=== PATIENT | female | born 1995 | race African-American/Black ===

== ENCOUNTER 2024-02-16 00:23 | Emergency (ER) | payer SELFPAY ==
[~2024-02-16] VITALS: Ht 157.5 cm; Wt 85.3 kg
[2024-02-16 00:38] VITALS: TEMP 98.6; O2SAT 100
[2024-02-16] MEDS ORDERED: KETOROLAC 15MG/ML VIAL IM ONE (00:45)
[2024-02-16] MEDS ORDERED: NAPR-1176 MT (02:08)
[2024-02-16] MEDS ORDERED: LIDO700A15 TP (02:08)
[2024-02-16 02:32] VITALS: BP 107/63; PULSE 106; RESP 18
[2024-02-16] MEDS: KETOROLAC 15MG/ML VIAL IM NR (02:32)
== END 2024-02-16 02:40 | disposition home or self-care (01) ==
LOC: ER 00:33
DX: S93.402A Sprain of unspecified ligament of left ankle, initial encounter (principal); W10.9XXA Fall (on) (from) unspecified stairs and steps, initial encounter; Y93.89 Activity, other specified; Y92.89 Other specified places as the place of occurrence of the external cause; Y99.8 Other external cause status
CPT/HCPCS: 99283; 73610; 96372; J1885